=== PATIENT | female | born 1940 | race Asian ===

== ENCOUNTER 2021-01-10 13:53 | Inpatient (IN) | payer OTHER, SELFPAY ==
[~2021-01-10] VITALS: Ht 160 cm; Wt 68.5 kg
[~2021-01-10 13:53] MED LIST: OMEP20TA20 PO; PREVASTATIN SODIUM PO; VERA100C4 PO; WARF-66 PO
[2021-01-10 14:08] VITALS: BP_SYST 139
--- NOTE | 2021-01-10 14:08 | NUR ---
Placed in room 2. Placed on cardiac catheterization technologist, blood pressure machine and pulse oximeter. To gown for exam. Side rails up.
--- NOTE | 2021-01-10 14:09 | NUR ---
Patient is awake, alert, and oriented x4. Patient was sent in by her PCP due to HGBH of 5.7. Patient was going to have a colonoscopy. Dr. Spear is to see her here as she was unable to have one done at [facility] yesterday due to anemia. Patient has no complaints at this time.
--- NOTE | 2021-01-10 14:20 | NUR ---
ER Dr. Sandy at bedside examining patient.
[2021-01-10 14:44] LABS: BASOPHILS % (AUTO) 0.5 % (0.0-2.0); EOSINOPHILS # (AUTO) 0.1 K/uL (0.0-0.4); EOSINOPHILS % (AUTO) 1.9 % (0.0-4.0); LYMPHOCYTES # (AUTO) 1.9 K/uL (1.0-5.5); LYMPHOCYTES % (AUTO) 26.7 % (20.5-51.5); MEAN CORPUSCULAR HEMOGLOBIN 27 pg (27-31); MEAN CORPUSCULAR HGB CONC 31 % (32-36); MEAN CORPUSCULAR VOLUME 89 fL (79.0-98.0); MONOCYTES # (AUTO) 0.5 K/uL (0.0-1.0); MONOCYTES % (AUTO) 6.5 % (1.7-9.3); NEUTROPHILS # (AUTO) 4.6 K/uL (1.8-7.7); NEUTROPHILS % (AUTO) 64.4 % (40.0-70.0); PLATELET COUNT (AUTO) 286 K/uL (130-430); RED BLOOD CELL COUNT(AUTO) 2.27 MIL/uL (4.2-6.2); RED CELL DISTRIBUTION WIDTH 24.5 % (9.0-15.0); WHITE BLOOD COUNT (AUTO) 7.1 K/uL (4.8-10.8)
[2021-01-10 14:45] LABS: ANION GAP 9 (5-15); CALCIUM 9.3 mg/dL (8.4-11.0); CHLORIDE 111 mmol/L (98-107); CREATININE 1.85 mg/dL (0.55-1.30); GLUCOSE 102 mg/dL (70-99); POTASSIUM 4.5 mmol/L (3.5-5.1); SODIUM SERUM 142 mmol/L (136-145); UREA NITROGEN, BLOOD 38 mg/dL (8-21)
[2021-01-10 14:49] LABS: INR 1.8 (0.8-1.2); PROTHROMBIN TIME 17.7 SECS (9.5-12.5)
[2021-01-10 14:51] LABS: ALANINE AMINOTRANSFERASE 19 U/L (12-78); ALBUMIN 3.5 g/dL (3.4-4.8); ASPARTATE AMINOTRANSFERASE 17 U/L (10-37); HEMATOCRIT 20.3 % (36-48); HEMOGLOBIN 6.2 g/dL (12.0-16.0); TOTAL BILIRUBIN 0.3 mg/dL (0.0-1.0)
[2021-01-10] MEDS ORDERED: VERA180T11 PO (14:51)
[2021-01-10] MEDS ORDERED: PRAV40TA PO (14:51)
[2021-01-10] MEDS ORDERED: HYG25 PO (14:51)
[2021-01-10] MEDS ORDERED: ANAS1TAB51 PO (14:51)
--- NOTE | 2021-01-10 14:52 | NUR ---
Medication reconciliation completed with information provided by patient. Any prior medication reconciliation on file was reviewed and corrected.
--- NOTE | 2021-01-10 14:59 | NUR ---
Report given to SHERIN Chaudhari for continuation of care.
--- NOTE | 2021-01-10 15:46 | NUR ---
ORDERS RECEIVED FROM MD EVANS TO ADMIT TO MS. CALLED CHARGE NURSE TO REQUEST BED. BED PROVIDED 101A.
--- NOTE | 2021-01-10 15:55 | NUR ---
Patient will be admitted to care of NATHAN. Admitted to [facility] unit. Will go to room 101A. Belongings list completed. Complete and up to date summary report printed. SBAR report to be given at bedside with opportunity for questions.
--- NOTE | 2021-01-10 16:15 | NUR ---
ADMISSION NOTE Received patient from ER via wheelchair, received report from LINE INSTALLER REPAIRER. Patient admitted with diagnosis of GI bleed. Patient oriented to hospital routine, call light, toileting and safety-patient verbalized understanding. Addendum: 01/10/21 at 1654 by Ashly Spear RN Received report from Fara DUFF
--- NOTE | 2021-01-10 17:25 | NUR ---
RN note Spoke with Dr. Dial regarding medication order of Warfarin 2.5mg, MD ordered to hold the medication because it is contraindicated to patients diagnosis, GI bleed.
[2021-01-10] MEDS ORDERED: COMMUNICATION ORDER XX ONE (17:30)
[2021-01-10 17:51] LABS: TOTAL IRON BIND. CAPACITY 493 ug/dL (250-450)
[2021-01-10] MEDS ORDERED: WARFARIN SODIUM 2.5 MG TABLET PO SCH (18:00)
--- NOTE | 2021-01-10 19:00 | NUR ---
Closing note Patient is resting in bed no signs or symptoms of distress, patient is not actively bleeding. Waiting for 1 unit of blood from [facility]. All needs were met. Bed is in lowest position, call light within reach, fall and aspiration precautions are in place. Will endorse report for overnight cashier.
--- NOTE | 2021-01-10 19:35 | NUR ---
Opening Note Patient is resting in bed with no signs or symptoms of distress, patient is not actively bleeding at this time. Waiting for 1 unit of blood from [facility]. Patient denies pain or discomfort. Patient encouraged to use call light for assistance. Bed is in lowest position, call light within reach, fall and aspiration precautions are in place. Will continue to monitor.
[2021-01-10 20:00] VITALS: BP_SYST 122
[2021-01-10 22:09] LABS: HEMATOCRIT 17.8 % (36-48); HEMOGLOBIN 5.3 g/dL (12.0-16.0)
--- NOTE | 2021-01-10 22:40 | NUR ---
BT INITIATION: Consent signed per patient agreeing to administration of blood. Blood has been type and crossmatched. Blood sent from blood bank. Information on unit of blood checked against patient wristband at bedside by two nurses. All information matches. Patient or responsible democrat informed of potential complications associated with blood transfusion. Informed of possible transfusion reaction symptoms. Aware of need to notify nurse at once of itching, shortness of breath, flushing, feeling of impending doom, or other symptoms not previously present. Vital signs taken within 5 minutes prior to initiation of transfusion. RN will remain with patient for first 15 minutes of transfusion at which time vital signs will be re-assessed.
[2021-01-11] VITALS: BP_SYST 114
--- NOTE | 2021-01-11 01:16 | NUR ---
Blood Transfusion complete no s/s of adverse reaction noted.
--- NOTE | 2021-01-11 03:00 | NUR ---
BT INITIATION: Consent signed per patient agreeing to administration of blood. Blood has been type and crossmatched. Blood sent from blood bank. Information on unit of blood checked against patient wristband at bedside by two nurses. All information matches. Patient or responsible green party informed of potential complications associated with blood transfusion. Informed of possible transfusion reaction symptoms. Aware of need to notify nurse at once of itching, shortness of breath, flushing, feeling of impending doom, or other symptoms not previously present. Vital signs taken within 5 minutes prior to initiation of transfusion. RN will remain with patient for first 15 minutes of transfusion at which time vital signs will be re-assessed.
--- NOTE | 2021-01-11 04:48 | NUR ---
CONSULT: CONSULT CALLED DR. EVER TAM EDGE PLUGGER THIS MORNING I SPOKE WITH TILA HERRERA REASON FOR CONSULT: GI BLEED REQUESTING CONSULT: DR. EVANS TOUR MANAGER PHONE NUMBER: [phone]
--- NOTE | 2021-01-11 05:00 | NUR ---
Blood Transfusion complete no s/s of adverse reaction noted.
--- NOTE | 2021-01-11 06:08 | NUR ---
Closing note Patient is resting in bed no signs or symptoms of distress, patient is not actively bleeding. All needs were met throughout shift. Bed is in lowest position, call light within reach, fall and aspiration precautions are in place. Will endorse report for buffer nickel.
[2021-01-11 07:15] LABS: HEMATOCRIT 24.4 % (36-48); HEMOGLOBIN 7.7 g/dL (12.0-16.0)
[2021-01-11 08:06] LABS: INR 1.9 (0.8-1.2); PROTHROMBIN TIME 18.8 SECS (9.5-12.5)
[2021-01-11 09:47] VITALS: BP_SYST 127
[2021-01-11] MEDS: ATORVASTATIN 10 MG TABLET PO SCH (09:53)
[2021-01-11] MEDS: VERAPAMIL HCL 180 MG TABLET.SA PO SCH (09:53)
--- NOTE | 2021-01-11 10:00 | NUR ---
patient resting in bed, aox4, calm oriented. patient vs are stable, patient has no c/o pain or discomfort. morning meds were given. all needs met for now, will continue monitoring.
--- NOTE | 2021-01-11 10:30 | NUR ---
RECEIVED PATIENT AAO. ON ROOM AIR BREATHING EVEN AND UNLABORED NO SIGN OF DISTRESS. SALINE LOCK LEFT A/C PATENT. SAFETY PRECAUTIONS IN PLACE. WILL CONTINUE TO MONITOR.
[2021-01-11 11:23] VITALS: BP_SYST 145
[2021-01-11 12:54] LABS: BASOPHILS % (AUTO) 0.6 % (0.0-2.0); EOSINOPHILS # (AUTO) 0.1 K/uL (0.0-0.4); EOSINOPHILS % (AUTO) 2.7 % (0.0-4.0); HEMATOCRIT 24.5 % (36-48); HEMOGLOBIN 7.6 g/dL (12.0-16.0); LYMPHOCYTES # (AUTO) 1.3 K/uL (1.0-5.5); LYMPHOCYTES % (AUTO) 27.5 % (20.5-51.5); MEAN CORPUSCULAR HEMOGLOBIN 28 pg (27-31); MEAN CORPUSCULAR HGB CONC 31 % (32-36); MEAN CORPUSCULAR VOLUME 89 fL (79.0-98.0); MONOCYTES # (AUTO) 0.3 K/uL (0.0-1.0); MONOCYTES % (AUTO) 6.2 % (1.7-9.3); PLATELET COUNT (AUTO) 210 K/uL (130-430); RED BLOOD CELL COUNT(AUTO) 2.75 MIL/uL (4.2-6.2); RED CELL DISTRIBUTION WIDTH 20.4 % (9.0-15.0); WHITE BLOOD COUNT (AUTO) 4.8 K/uL (4.8-10.8)
[2021-01-11 15:48] VITALS: BP_SYST 121
--- NOTE | 2021-01-11 17:45 | NUR ---
STARTED BLOOD TRANSFUSION
--- NOTE | 2021-01-11 18:49 | NUR ---
PATIENT RESTING IN BED ON RROM AIR BREATHING EVEN AND UNLABORED NO SIGN OF DISTRESS BLOOD TRANSFUSING TO LEFT A/C AT 150ML/HR. SAFETY PRECAUTIONS IN PLACE WILL ENDORSE TO NEXT SHIFT.
--- NOTE | 2021-01-11 19:15 | NUR ---
OPENING NOTE PATIENT RESTING IN BED ON ROOM AIR ,BREATHING EVEN AND UNLABORED NO SIGN OF DISTRESS, BLOOD TRANSFUSING TO LEFT A/C AT 150ML/HR. SAFETY PRECAUTIONS IN PLACE. WILL CONTINUE TO MONITOR.
[2021-01-11 20:00] VITALS: BP_SYST 121
--- NOTE | 2021-01-11 21:00 | NUR ---
Blood Transfusion Complete no s/s of adverse reaction.
[2021-01-12 00:05] VITALS: BP_SYST 135
--- NOTE | 2021-01-12 06:28 | NUR ---
Closing note Patient is resting in bed no signs or symptoms of distress, patient is not actively bleeding. All needs were met throughout shift. Bed is in lowest position, call light within reach, fall and aspiration precautions are in place. Will endorse report for shift nurse manager.
--- NOTE | 2021-01-12 07:30 | NUR ---
OPENING NOTES PT AWAKE, ALERT, AND ORIENTED. NONLABORED BREATHING NOTED ON ROOM AIR, TOLERATING WELL. IV LINE INTACT AND PATENT, NO SIGNS OF INFILTRATION NOTED. NO ACUTE DISTRESS NOTED. ALL NEEDS MET. CALL LIGHT IN REACH. FALL AND ASPIRATION PRECAUTIONS IN PLACE.
[2021-01-12 08:00] VITALS: BP_SYST 129
[2021-01-12] MEDS: VERAPAMIL HCL 180 MG TABLET.SA PO SCH (08:51)
--- NOTE | 2021-01-12 08:54 | NUR ---
SEEN BY DR. CURTIS AT BEDSIDE.
[2021-01-12] MEDS: ATORVASTATIN 10 MG TABLET PO SCH (08:56)
--- NOTE | 2021-01-12 08:57 | NUR ---
ROUTINE MEDS ADMINISTERED ORDERED PER MD, EDUCATION GIVEN, TOLERATED WELL.
[2021-01-12 09:25] LABS: BASOPHILS % (AUTO) 0.4 % (0.0-2.0); EOSINOPHILS # (AUTO) 0.2 K/uL (0.0-0.4); EOSINOPHILS % (AUTO) 3.1 % (0.0-4.0); HEMATOCRIT 27.8 % (36-48); HEMOGLOBIN 8.8 g/dL (12.0-16.0); LYMPHOCYTES # (AUTO) 1.3 K/uL (1.0-5.5); LYMPHOCYTES % (AUTO) 22.2 % (20.5-51.5); MEAN CORPUSCULAR HEMOGLOBIN 28 pg (27-31); MEAN CORPUSCULAR HGB CONC 32 % (32-36); MEAN CORPUSCULAR VOLUME 89 fL (79.0-98.0); MONOCYTES # (AUTO) 0.4 K/uL (0.0-1.0); MONOCYTES % (AUTO) 7.8 % (1.7-9.3); NEUTROPHILS # (AUTO) 3.8 K/uL (1.8-7.7); NEUTROPHILS % (AUTO) 66.5 % (40.0-70.0); PLATELET COUNT (AUTO) 198 K/uL (130-430); RED BLOOD CELL COUNT(AUTO) 3.11 MIL/uL (4.2-6.2); WHITE BLOOD COUNT (AUTO) 5.7 K/uL (4.8-10.8)
[2021-01-12 10:04] LABS: ANION GAP 9 (5-15); CALCIUM 9.1 mg/dL (8.4-11.0); CHLORIDE 111 mmol/L (98-107); CREATININE 1.43 mg/dL (0.55-1.30); GLUCOSE 90 mg/dL (70-99); POTASSIUM 4.5 mmol/L (3.5-5.1); SODIUM SERUM 142 mmol/L (136-145); UREA NITROGEN, BLOOD 26 mg/dL (8-21)
--- NOTE | 2021-01-12 10:39 | NUR ---
SPOKE TO DR. EVANS AT NURSE'S STATION REGARDING BMP, OK TO GO HOME.
[2021-01-12 12:21] VITALS: BP_SYST 138
[2021-01-12 13:12] VITALS: BP_SYST 139
--- NOTE | 2021-01-17 15:54 | NUR ---
Discharge Follow Up Call: LAMP MECHANIC phoned pt @ [phone] who stated she is "doing okay". Per pt, she has seen her PCP on 01/[address] Paz's clinical project assistant from [facility]. Pt does not have questions/concerns about her discharge instructions. No further SS call needed.
== END 2021-01-12 13:48 | disposition home or self-care (01) | DRG 378 ==
LOC: SED 13:53 → SMU 15:39
PROVIDERS: ADMIT Internal Medicine Hospice and Palliative Medicine; ATTEND Internal Medicine Hospice and Palliative Medicine
PROC: 30233N1 Transfusion of Nonautologous Red Blood Cells into Peripheral Vein, Percutaneous Approach (ICD-10-PCS; principal; 2021-01-10)
DX: K92.2 Gastrointestinal hemorrhage, unspecified (principal); N17.9 Acute kidney failure, unspecified; E78.5 Hyperlipidemia, unspecified; I10 Essential (primary) hypertension; D64.9 Anemia, unspecified; I34.9 Nonrheumatic mitral valve disorder, unspecified; Z85.3 Personal history of malignant neoplasm of breast; Z95.2 Presence of prosthetic heart valve; Z20.822 Contact with and (suspected) exposure to COVID-19; Z79.899 Other long term (current) drug therapy
CPT/HCPCS: 36415; 71045; 80048; 80053; 82550; 82607; 83010; 83540; 83550; 83615; 85018; 85025; 85610-TC; 85730-TC; 86870; 86886; 86900; 86901; 86905; 86920; 93005; 99291; J7040; J7050; P9021

== ENCOUNTER 2021-02-16 11:37 | Observation (INO) | payer OTHER, SELFPAY ==
[~2021-02-16] VITALS: Ht 160 cm; Wt 69.6 kg
[2021-02-16 11:37] VITALS: BP_SYST 148
[~2021-02-16 11:37] MED LIST changes: +ANAS1TAB51 PO; -OMEP20TA20 PO; +PRAV40TA PO; -VERA100C4 PO; +VERA180T11 PO
[2021-02-16 12:31] LABS: BASOPHILS % (AUTO) 0.3 % (0.0-2.0); EOSINOPHILS # (AUTO) 0.1 K/uL (0.0-0.4); LYMPHOCYTES # (AUTO) 1.3 K/uL (1.0-5.5); LYMPHOCYTES % (AUTO) 24.4 % (20.5-51.5); MEAN CORPUSCULAR HEMOGLOBIN 30 pg (27-31); MEAN CORPUSCULAR HGB CONC 33 % (32-36); MEAN CORPUSCULAR VOLUME 90 fL (79.0-98.0); MONOCYTES # (AUTO) 0.3 K/uL (0.0-1.0); MONOCYTES % (AUTO) 5.5 % (1.7-9.3); NEUTROPHILS # (AUTO) 3.7 K/uL (1.8-7.7); NEUTROPHILS % (AUTO) 67.8 % (40.0-70.0); PLATELET COUNT (AUTO) 198 K/uL (130-430); RED BLOOD CELL COUNT(AUTO) 2.16 MIL/uL (4.2-6.2); WHITE BLOOD COUNT (AUTO) 5.5 K/uL (4.8-10.8)
[2021-02-16 12:33] LABS: HEMATOCRIT 19.5 % (36-48); HEMOGLOBIN 6.5 g/dL (12.0-16.0)
[2021-02-16 12:40] LABS: PROTHROMBIN TIME 20.1 SECS (9.5-12.5)
[2021-02-16 12:51] LABS: ANION GAP 8 (5-15); CALCIUM 9.3 mg/dL (8.4-11.0); CHLORIDE 113 mmol/L (98-107); CREATININE 1.95 mg/dL (0.55-1.30); GLUCOSE 112 mg/dL (70-99); POTASSIUM 5.2 mmol/L (3.5-5.1); SODIUM SERUM 144 mmol/L (136-145); UREA NITROGEN, BLOOD 47 mg/dL (8-21)
[2021-02-16 12:59] LABS: ALANINE AMINOTRANSFERASE 22 U/L (12-78); ALBUMIN 3.2 g/dL (3.4-4.8); ASPARTATE AMINOTRANSFERASE 19 U/L (10-37); LIPASE 289 U/L (73-393); TOTAL BILIRUBIN 0.3 mg/dL (0.0-1.0)
[2021-02-16 13:02] LABS: AMYLASE 249 U/L (0-100)
[2021-02-16] MEDS ORDERED: LOSA100T3 PO (13:32)
[2021-02-16 14:36] LABS: BILIRUBIN,URINE NEGATIVE (NEGATIVE); BLOOD, URINE NEGATIVE (NEGATIVE); CLARITY/URINE CLEAR (CLEAR); COLOR,URINE YELLOW (YELLOW); GLUCOSE,URINE NEGATIVE (NEGATIVE); KETONES,URINE NEGATIVE (NEGATIVE); LEUKOCYTE ESTERASE ,URINE 3+ (NEGATIVE); NITRITE, URINE NEGATIVE (NEGATIVE); PH,URINE 5.5 (5.0-8.0); PROTEIN URINE NEGATIVE (NEGATIVE); UROBILINOGEN,URINE 0.2 (0.2-1.0)
[2021-02-16 14:41] LABS: BACTERIA,URINE FEW /HPF (None Seen); MUCUS,URINE 1+ /LPF (None Seen); RBC,URINE 0-3 /HPF (0-3)
[2021-02-16 15:36] VITALS: BP_SYST 132
[2021-02-16] MEDS ORDERED: MORPHINE 2 MG/ML INJ. SYRINGE IVP PRN (16:15)
[2021-02-16] MEDS ORDERED: MORPHINE 4 MG INJ. 4 MG/ML VIAL IVP PRN (16:15)
[2021-02-16] MEDS ORDERED: ACETAMINOPHEN 325 MG TABLET PO PRN (16:15)
[2021-02-16] MEDS ORDERED: ONDANSETRON HCL 4 MG/2 ML VIAL IVP PRN (16:15)
[2021-02-16] MEDS ORDERED: METOCLOPRAMIDE HCL 10 MG/2 ML VIAL IVP PRN (16:15)
[2021-02-16] MEDS ORDERED: WARF2.5T83 PO (16:27)
[2021-02-16] MEDS: NACL 0.9% 1,000 ML IV SCH (16:33)
[2021-02-16 17:20] VITALS: BP_SYST 143
[2021-02-16 19:53] VITALS: BP_SYST 129
[2021-02-17 00:02] VITALS: BP_SYST 126
[2021-02-17 05:26] LABS: BASOPHILS % (AUTO) 0.3 % (0.0-2.0); EOSINOPHILS # (AUTO) 0.1 K/uL (0.0-0.4); EOSINOPHILS % (AUTO) 2.5 % (0.0-4.0); HEMATOCRIT 26.8 % (36-48); HEMOGLOBIN 8.5 g/dL (12.0-16.0); LYMPHOCYTES # (AUTO) 1.3 K/uL (1.0-5.5); LYMPHOCYTES % (AUTO) 24.1 % (20.5-51.5); MEAN CORPUSCULAR HEMOGLOBIN 28 pg (27-31); MEAN CORPUSCULAR HGB CONC 32 % (32-36); MEAN CORPUSCULAR VOLUME 87 fL (79.0-98.0); MONOCYTES # (AUTO) 0.4 K/uL (0.0-1.0); MONOCYTES % (AUTO) 6.9 % (1.7-9.3); NEUTROPHILS # (AUTO) 3.7 K/uL (1.8-7.7); NEUTROPHILS % (AUTO) 66.2 % (40.0-70.0); PLATELET COUNT (AUTO) 162 K/uL (130-430); RED BLOOD CELL COUNT(AUTO) 3.06 MIL/uL (4.2-6.2); RED CELL DISTRIBUTION WIDTH 18.8 % (9.0-15.0); WHITE BLOOD COUNT (AUTO) 5.6 K/uL (4.8-10.8)
[2021-02-17 05:39] LABS: INR 2.2 (0.8-1.2)
[2021-02-17 08:02] VITALS: BP_SYST 134
[2021-02-17] MEDS: NACL 0.9% 1,000 ML IV SCH (08:32)
[2021-02-17] MEDS ORDERED: VERAPAMIL HCL 180 MG TABLET.SA PO SCH (09:00)
[2021-02-17] MEDS ORDERED: PANTOPRAZOLE SODIUM 40 MG TAB PO SCH (09:00)
[2021-02-17] MEDS ORDERED: PRAVASTATIN 40 MG PO SCH (09:00)
[2021-02-17] MEDS ORDERED: ATORVASTATIN 10 MG TABLET PO SCH (09:00)
[2021-02-17] MEDS ORDERED: PRO40 PO (09:44)
[2021-02-17 10:21] VITALS: BP_SYST 134
[2021-02-17] MEDS ORDERED: WARFARIN SODIUM 2.5 MG TABLET PO SCH (18:00)
== END 2021-02-17 11:00 | disposition home or self-care (01) ==
LOC: SED 11:37 → SMU 14:28 → INTOOBSV 14:28 → SMU 14:53
PROVIDERS: ADMIT Internal Medicine Hospice and Palliative Medicine; ATTEND Internal Medicine Hospice and Palliative Medicine
DX: D50.0 Iron deficiency anemia secondary to blood loss (chronic) (principal); Z20.822 Contact with and (suspected) exposure to COVID-19; K92.1 Melena; D12.6 Benign neoplasm of colon, unspecified; K64.8 Other hemorrhoids; I12.9 Hypertensive chronic kidney disease with stage 1 through stage 4 chronic kidney disease, or unspecified chronic kidney disease; N18.9 Chronic kidney disease, unspecified; I48.91 Unspecified atrial fibrillation; Z95.2 Presence of prosthetic heart valve; Z79.899 Other long term (current) drug therapy
CPT/HCPCS: 36415 ×2; 36430 ×2; 71045; 80053; 81000; 82150; 83690; 85025 ×2; 85610 ×2; 85730; 86870; 86886; 86900; 86901; 86920; 87086; 87426; 93005; 96360; 96361 ×2; 99285; G0378 ×2; J7030 ×2; J7040; P9021 ×2

== ENCOUNTER 2021-08-17 08:28 | Emergency (ER) | payer OTHER, SELFPAY ==
[~2021-08-17] VITALS: Ht 160 cm; Wt 68.5 kg
[2021-08-17 08:28] VITALS: BP_SYST 129
[~2021-08-17 08:28] MED LIST changes: +LOSA100T3 PO; +PRO40 PO; -VERA180T11 PO; +VERA180T24 PO; -WARF-66 PO; +WARF2.5T83 PO
--- NOTE | 2021-08-17 08:28 | NUR ---
BROUGHT BACK TO BED #8 AND REPORT GIVEN TO KATHY
--- NOTE | 2021-08-17 08:32 | NUR ---
PT BIB FROM HOME STATING SHE WAS REFERRED BY HER MD AFTER LOW H/H THIS PAST SATURDAY. STATES SHE HAS BEEN FEELING FATIGUED. PT REPORTS TAKING COUMADIN FOR MITRAL VALVE ISSUE. ALSO STATES SHE HAS A HX OF GI BLEEDING. PT IS AAOX4, V/S STABLE, AMBULATORY.
--- NOTE | 2021-08-17 08:49 | NUR ---
# 20 gauge angiocath placed to RAC. Use of asceptic technique. Opsite placed over site. Blood return noted. Blood for lab drawn from site. Flushed with 10 cc of normal saline. No evidence of infiltration noted. Patient tolerated well.
--- NOTE | 2021-08-17 08:55 | NUR ---
ER DR. MONTEMAYOR AT THE BEDSIDE EXAMINING PT
[2021-08-17 09:16] LABS: BASOPHILS % (AUTO) 0.6 % (0.0-2.0); EOSINOPHILS # (AUTO) 0.3 K/uL (0.0-0.4); EOSINOPHILS % (AUTO) 6.2 % (0.0-4.0); HEMATOCRIT 22.4 % (36-48); HEMOGLOBIN 7.3 g/dL (12.0-16.0); LYMPHOCYTES # (AUTO) 0.9 K/uL (1.0-5.5); LYMPHOCYTES % (AUTO) 18.1 % (20.5-51.5); MEAN CORPUSCULAR HEMOGLOBIN 30 pg (27-31); MEAN CORPUSCULAR HGB CONC 32 % (32-36); MEAN CORPUSCULAR VOLUME 93 fL (79.0-98.0); MONOCYTES # (AUTO) 0.3 K/uL (0.0-1.0); MONOCYTES % (AUTO) 6.4 % (1.7-9.3); NEUTROPHILS # (AUTO) 3.6 K/uL (1.8-7.7); NEUTROPHILS % (AUTO) 68.7 % (40.0-70.0); PLATELET COUNT (AUTO) 278 K/uL (130-430); RED BLOOD CELL COUNT(AUTO) 2.41 MIL/uL (4.2-6.2); RED CELL DISTRIBUTION WIDTH 18.4 % (9.0-15.0); WHITE BLOOD COUNT (AUTO) 5.2 K/uL (4.8-10.8)
[2021-08-17 09:20] LABS: ANION GAP 8 (5-15); CALCIUM 8.7 mg/dL (8.4-11.0); CHLORIDE 110 mmol/L (98-107); CREATININE 1.61 mg/dL (0.55-1.30); GLUCOSE 112 mg/dL (70-99); POTASSIUM 3.7 mmol/L (3.5-5.1); SODIUM SERUM 143 mmol/L (136-145); UREA NITROGEN, BLOOD 25 mg/dL (8-21)
[2021-08-17 09:23] LABS: INR 1.8 (0.8-1.2); PROTHROMBIN TIME 18.9 SECS (9.5-12.5)
[2021-08-17 09:26] LABS: ALANINE AMINOTRANSFERASE 22 U/L (12-78); ALBUMIN 3.2 g/dL (3.4-4.8); ASPARTATE AMINOTRANSFERASE 22 U/L (10-37); TOTAL BILIRUBIN 0.1 mg/dL (0.0-1.0)
--- NOTE | 2021-08-17 09:30 | NUR ---
PT RESTING IN [facility], AAOX4, NO DISTRESS NOTED
[2021-08-17 10:14] VITALS: BP_SYST 129
== END 2021-08-17 10:16 | disposition home or self-care (01) ==
LOC: SED 08:28
DX: D53.9 Nutritional anemia, unspecified (principal); N18.9 Chronic kidney disease, unspecified; I48.91 Unspecified atrial fibrillation; Z79.899 Other long term (current) drug therapy
CPT/HCPCS: 36415; 80053; 85025; 85610-TC; 86870; 86886; 86900; 86901; 99283

== ENCOUNTER 2023-12-23 11:03 | Inpatient (IN) | payer OTHER ==
[~2023-12-23] VITALS: Ht 160 cm; Wt 57.7 kg
[~2023-12-23 11:03] MED LIST changes: +LOSA-415 PO; -LOSA100T3 PO; -VERA180T24 PO; +VERA180T59 PO
[2023-12-23 11:09] VITALS: BP_SYST 134; PULSE 59; RESP 17; TEMP 96.7; O2SAT 90
[2023-12-23 11:36] LABS: ABG O2 SAT% ESTIMATE 90.3 % (94.0-100.0); BLOOD GAS PCO2 32.9 mmHg (35.0-45.0); BLOOD GAS PH 7.349 (7.350-7.450); BLOOD GAS PO2 60.4 mmHg (75.0-100.0)
[2023-12-23 11:39] LABS: BLOOD GAS HCO3 17.7 mmol/L (21.0-27.0)
[2023-12-23 11:40] LABS: ALLEN'S TEST POSITIVE (P); BLOOD GAS BASE EXCESS -6.8 mmol/L (-3.0-3.0)
[2023-12-23 11:41] LABS: BASOPHILS # (AUTO) 0.1 K/uL (0.0-0.2); BASOPHILS % (AUTO) 0.6 % (0.0-2.0); EOSINOPHILS # (AUTO) 0.3 K/uL (0.0-0.4); EOSINOPHILS % (AUTO) 3.4 % (0.0-4.0); HEMATOCRIT 34.2 % (36-48); HEMOGLOBIN 11.2 g/dL (12.0-16.0); LYMPHOCYTES # (AUTO) 0.9 K/uL (1.0-5.5); LYMPHOCYTES % (AUTO) 9.9 % (20.5-51.5); MEAN CORPUSCULAR HEMOGLOBIN 31 pg (27-31); MEAN CORPUSCULAR HGB CONC 33 % (32-36); MEAN CORPUSCULAR VOLUME 95 fL (79.0-98.0); MONOCYTES # (AUTO) 0.5 K/uL (0.0-1.0); MONOCYTES % (AUTO) 6.3 % (1.7-9.3); NEUTROPHILS # (AUTO) 6.9 K/uL (1.8-7.7); NEUTROPHILS % (AUTO) 79.8 % (40.0-70.0); PLATELET COUNT (AUTO) 294 K/uL (130-430); RED CELL DISTRIBUTION WIDTH 14.6 % (9.0-15.0); WHITE BLOOD COUNT (AUTO) 8.6 K/uL (4.8-10.8)
[2023-12-23 11:51] LABS: ANION GAP 12 (5-15); CALCIUM 9.4 mg/dL (8.4-11.0); CARBON DIOXIDE 23 mmol/L (23-29); CHLORIDE 111 mmol/L (98-107); CREATININE 2.22 mg/dL (0.55-1.30); GLUCOSE 113 mg/dL (74-106); POTASSIUM 4.5 mmol/L (3.5-5.1); SODIUM SERUM 146 mmol/L (136-145); UREA NITROGEN, BLOOD 73 mg/dL (8-21)
[2023-12-23 11:59] LABS: ALANINE AMINOTRANSFERASE 23 U/L (12-78); ALBUMIN 2.6 g/dL (3.4-4.8); ASPARTATE AMINOTRANSFERASE 18 U/L (10-37); BILIRUBIN,DIRECT 0.1 mg/dL (0.0-0.3); TOTAL BILIRUBIN 0.4 mg/dL (0.0-1.0); TOTAL PROTEIN, SERUM 7.6 g/dL (6.4-8.3)
[2023-12-23] MEDS ORDERED: METO-540 (12:13)
[2023-12-23 12:46] LABS: COVID19 ANTIGEN SOFIA FIA NEGATIVE (NEGATIVE)
[2023-12-23 12:48] LABS: INFLUENZA TYPE A Negative (NEGATIVE); INFLUENZA TYPE B NEGATIVE (NEGATIVE)
[2023-12-23] MEDS ORDERED: MORPHINE 2 MG/ML INJ. SYRINGE IVP PRN (14:00)
[2023-12-23] MEDS ORDERED: ONDANSETRON HCL 4 MG/2 ML VIAL IVP PRN (14:00)
[2023-12-23] MEDS ORDERED: ACETAMINOPHEN 325 MG TABLET PO PRN ×2 (14:00→14:15)
[2023-12-23] MEDS ORDERED: HYDROcodone/ACETAMIN 10-325 MG TAB PO PRN (14:00)
[2023-12-23] MEDS ORDERED: HYDROcodone/ACETAMIN 5-325 MG TAB (NORCO/ VICODIN) PO PRN (14:00)
[2023-12-23] MEDS: FUROSEMIDE 20 MG/2 ML VIAL IVP ONE (14:21)
[2023-12-23] MEDS: METOPROLOL TARTRATE 25 MG TABLET PO ONE (14:21)
[2023-12-23 14:27] LABS: INR 3.3 (0.8-1.2); PROTHROMBIN TIME 32.5 SECS (9.5-12.5)
[2023-12-23 14:35] VITALS: O2SAT 96
[2023-12-23] MEDS: IPRATROPIUM BROM 0.5 MG/2.5 ML VIAL.NEB (ATROVENT) INH SCH (14:37)
[2023-12-23 14:49] VITALS: BP_SYST 137; PULSE 65; O2SAT 96
[2023-12-23 19:00] VITALS: O2SAT 97
[2023-12-23] MEDS: METOPROLOL TARTRATE 25 MG TABLET PO SCH (21:01)
[2023-12-23] MEDS: FUROSEMIDE 20 MG/2 ML VIAL IVP SCH (21:01)
[2023-12-23 22:50] VITALS: O2SAT 97
[2023-12-24] VITALS (9 sets, daily range): BP systolic 128–141; PULSE 70–88; RESP 18–22; TEMP 97.1–99.3; O2SAT 92–97
[2023-12-24 06:11] LABS: BASOPHILS % (AUTO) 0.6 % (0.0-2.0); EOSINOPHILS # (AUTO) 0.3 K/uL (0.0-0.4); EOSINOPHILS % (AUTO) 4.2 % (0.0-4.0); HEMATOCRIT 33.2 % (36-48); HEMOGLOBIN 10.8 g/dL (12.0-16.0); LYMPHOCYTES # (AUTO) 0.7 K/uL (1.0-5.5); LYMPHOCYTES % (AUTO) 8.8 % (20.5-51.5); MEAN CORPUSCULAR HEMOGLOBIN 31 pg (27-31); MEAN CORPUSCULAR HGB CONC 33 % (32-36); MEAN CORPUSCULAR VOLUME 95 fL (79.0-98.0); MONOCYTES # (AUTO) 0.5 K/uL (0.0-1.0); MONOCYTES % (AUTO) 7.1 % (1.7-9.3); NEUTROPHILS % (AUTO) 79.3 % (40.0-70.0); PLATELET COUNT (AUTO) 259 K/uL (130-430); RED BLOOD CELL COUNT(AUTO) 3.48 MIL/uL (4.2-6.2); RED CELL DISTRIBUTION WIDTH 14.7 % (9.0-15.0); WHITE BLOOD COUNT (AUTO) 7.5 K/uL (4.8-10.8)
[2023-12-24 06:37] LABS: INR 3.1 (0.8-1.2); PROTHROMBIN TIME 30.1 SECS (9.5-12.5)
[2023-12-24 07:05] LABS: ALANINE AMINOTRANSFERASE 15 U/L (12-78); ALBUMIN 2.5 g/dL (3.4-4.8); ANION GAP 10 (5-15); CALCIUM 9.4 mg/dL (8.4-11.0); CARBON DIOXIDE 25 mmol/L (23-29); CHLORIDE 113 mmol/L (98-107); CREATININE 2.17 mg/dL (0.55-1.30); GLUCOSE 88 mg/dL (74-106); PHOSPHORUS 3.8 mg/dL (2.7-4.5); POTASSIUM 4.8 mmol/L (3.5-5.1); SODIUM SERUM 148 mmol/L (136-145); TOTAL BILIRUBIN 0.4 mg/dL (0.0-1.0); TOTAL PROTEIN, SERUM 7.2 g/dL (6.4-8.3); UREA NITROGEN, BLOOD 68 mg/dL (8-21)
[2023-12-24 07:34] LABS: ASPARTATE AMINOTRANSFERASE 24 U/L (10-37)
[2023-12-24] MEDS ORDERED: METO50TA7 PO (12:08)
[2023-12-24] MEDS ORDERED: PRO40 PO (12:08)
[2023-12-24] MEDS ORDERED: TORS10TA15 PO (12:11)
[2023-12-24] MEDS ORDERED: FEBU40TA PO (12:15)
[2023-12-24] MEDS: ANASTROZOLE 1 MG TABLET (ARIMIDEX) PO ONE (12:27)
[2023-12-24] MEDS: PANTOPRAZOLE SODIUM 40 MG TAB PO ONE (12:27)
[2023-12-24] MEDS: VERAPAMIL HCL 180 MG TABLET.SA PO ONE (12:27)
[2023-12-24] MEDS: ATORVASTATIN 10 MG TABLET PO ONE (12:27)
[2023-12-24] MEDS ORDERED: WARFARIN SODIUM 2.5 MG TABLET PO SCH (18:00)
[2023-12-24] MEDS ORDERED: FUROSEMIDE 40 MG/4 ML VIAL IVP SCH (18:00)
[2023-12-24] MEDS: METOPROLOL TARTRATE 50 MG TABLET PO SCH (20:36)
[2023-12-25] VITALS (11 sets, daily range): BP systolic 125–135; PULSE 62–98; RESP 14–20; TEMP 98.3–99.2; O2SAT 92–100
[2023-12-25 06:03] LABS: BASOPHILS % (AUTO) 0.3 % (0.0-2.0); EOSINOPHILS # (AUTO) 0.3 K/uL (0.0-0.4); EOSINOPHILS % (AUTO) 4.1 % (0.0-4.0); HEMATOCRIT 32.1 % (36-48); HEMOGLOBIN 10.4 g/dL (12.0-16.0); LYMPHOCYTES # (AUTO) 0.8 K/uL (1.0-5.5); LYMPHOCYTES % (AUTO) 11.3 % (20.5-51.5); MEAN CORPUSCULAR HEMOGLOBIN 31 pg (27-31); MEAN CORPUSCULAR HGB CONC 32 % (32-36); MEAN CORPUSCULAR VOLUME 96 fL (79.0-98.0); MONOCYTES # (AUTO) 0.5 K/uL (0.0-1.0); MONOCYTES % (AUTO) 7.4 % (1.7-9.3); NEUTROPHILS # (AUTO) 5.3 K/uL (1.8-7.7); NEUTROPHILS % (AUTO) 76.9 % (40.0-70.0); PLATELET COUNT (AUTO) 237 K/uL (130-430); RED BLOOD CELL COUNT(AUTO) 3.36 MIL/uL (4.2-6.2); RED CELL DISTRIBUTION WIDTH 14.4 % (9.0-15.0); WHITE BLOOD COUNT (AUTO) 6.9 K/uL (4.8-10.8)
[2023-12-25 06:09] LABS: INR 2.8 (0.8-1.2); PROTHROMBIN TIME 27.7 SECS (9.5-12.5)
[2023-12-25 06:14] LABS: ALANINE AMINOTRANSFERASE 12 U/L (12-78); ALBUMIN 2.2 g/dL (3.4-4.8); ANION GAP 9 (5-15); ASPARTATE AMINOTRANSFERASE 13 U/L (10-37); CALCIUM 9.1 mg/dL (8.4-11.0); CARBON DIOXIDE 25 mmol/L (23-29); CHLORIDE 113 mmol/L (98-107); CREATININE 2.13 mg/dL (0.55-1.30); GLUCOSE 92 mg/dL (74-106); POTASSIUM 4.5 mmol/L (3.5-5.1); SODIUM SERUM 147 mmol/L (136-145); TOTAL BILIRUBIN 0.3 mg/dL (0.0-1.0); TOTAL PROTEIN, SERUM 6.5 g/dL (6.4-8.3); UREA NITROGEN, BLOOD 63 mg/dL (8-21)
[2023-12-25] MEDS: ANASTROZOLE 1 MG TABLET (ARIMIDEX) PO SCH (09:00)
[2023-12-25] MEDS ORDERED: VERAPAMIL HCL 180 MG TABLET.SA PO SCH (09:00)
[2023-12-25] MEDS: ATORVASTATIN 10 MG TABLET PO SCH (09:00)
[2023-12-25] MEDS: PANTOPRAZOLE SODIUM 40 MG TAB PO SCH (09:00)
[2023-12-25] MEDS: FUROSEMIDE 40 MG/4 ML VIAL IVP ONE (14:51)
[2023-12-25] MEDS: WARFARIN SODIUM 2 MG TABLET PO SCH (18:36)
[2023-12-25] MEDS: FUROSEMIDE 40 MG/4 ML VIAL IVP SCH (21:20)
[2023-12-26] VITALS (12 sets, daily range): BP systolic 122–132; PULSE 71–86; RESP 16–18; TEMP 97.9–98.5; O2SAT 92–97
[2023-12-26 05:05] LABS: BASOPHILS % (AUTO) 0.4 % (0.0-2.0); EOSINOPHILS # (AUTO) 0.2 K/uL (0.0-0.4); EOSINOPHILS % (AUTO) 2.7 % (0.0-4.0); HEMATOCRIT 33.2 % (36-48); HEMOGLOBIN 10.8 g/dL (12.0-16.0); LYMPHOCYTES # (AUTO) 0.7 K/uL (1.0-5.5); LYMPHOCYTES % (AUTO) 8.6 % (20.5-51.5); MEAN CORPUSCULAR HEMOGLOBIN 31 pg (27-31); MEAN CORPUSCULAR HGB CONC 32 % (32-36); MEAN CORPUSCULAR VOLUME 95 fL (79.0-98.0); MONOCYTES # (AUTO) 0.5 K/uL (0.0-1.0); MONOCYTES % (AUTO) 6.1 % (1.7-9.3); NEUTROPHILS # (AUTO) 6.9 K/uL (1.8-7.7); NEUTROPHILS % (AUTO) 82.2 % (40.0-70.0); PLATELET COUNT (AUTO) 248 K/uL (130-430); RED BLOOD CELL COUNT(AUTO) 3.48 MIL/uL (4.2-6.2); RED CELL DISTRIBUTION WIDTH 14.1 % (9.0-15.0); WHITE BLOOD COUNT (AUTO) 8.4 K/uL (4.8-10.8)
[2023-12-26 05:21] LABS: INR 2.3 (0.8-1.2); PROTHROMBIN TIME 22.7 SECS (9.5-12.5)
[2023-12-26 05:37] LABS: ALBUMIN 2.4 g/dL (3.4-4.8); ANION GAP 8 (5-15); ASPARTATE AMINOTRANSFERASE 12 U/L (10-37); CALCIUM 9.3 mg/dL (8.4-11.0); CARBON DIOXIDE 27 mmol/L (23-29); CHLORIDE 110 mmol/L (98-107); CREATININE 2.33 mg/dL (0.55-1.30); GLUCOSE 97 mg/dL (74-106); POTASSIUM 4.1 mmol/L (3.5-5.1); SODIUM SERUM 145 mmol/L (136-145); TOTAL PROTEIN, SERUM 7.4 g/dL (6.4-8.3); UREA NITROGEN, BLOOD 59 mg/dL (8-21)
[2023-12-26 07:51] LABS: ALANINE AMINOTRANSFERASE 21 U/L (12-78); TOTAL BILIRUBIN 0.5 mg/dL (0.0-1.0)
[2023-12-26] MEDS: ALBUMIN HUMAN 25% 50 ML IV SCH (13:19)
[2023-12-26] MEDS: ALBUMIN HUMAN 25% 50 ML IV ONE (20:51)
[2023-12-27] VITALS (12 sets, daily range): BP systolic 119–133; PULSE 63–92; RESP 16–20; TEMP 97.8–98.2; O2SAT 93–99
[2023-12-27 05:12] LABS: INR 1.9 (0.8-1.2); PROTHROMBIN TIME 18.9 SECS (9.5-12.5)
[2023-12-27 05:14] LABS: BASOPHILS % (AUTO) 0.3 % (0.0-2.0); EOSINOPHILS # (AUTO) 0.2 K/uL (0.0-0.4); EOSINOPHILS % (AUTO) 1.9 % (0.0-4.0); HEMATOCRIT 34.1 % (36-48); HEMOGLOBIN 11.4 g/dL (12.0-16.0); LYMPHOCYTES # (AUTO) 0.7 K/uL (1.0-5.5); MEAN CORPUSCULAR HEMOGLOBIN 32 pg (27-31); MEAN CORPUSCULAR HGB CONC 33 % (32-36); MEAN CORPUSCULAR VOLUME 94 fL (79.0-98.0); MONOCYTES # (AUTO) 0.6 K/uL (0.0-1.0); MONOCYTES % (AUTO) 6.7 % (1.7-9.3); NEUTROPHILS # (AUTO) 7.4 K/uL (1.8-7.7); NEUTROPHILS % (AUTO) 83.1 % (40.0-70.0); PLATELET COUNT (AUTO) 257 K/uL (130-430); RED BLOOD CELL COUNT(AUTO) 3.61 MIL/uL (4.2-6.2); RED CELL DISTRIBUTION WIDTH 14.3 % (9.0-15.0); WHITE BLOOD COUNT (AUTO) 8.8 K/uL (4.8-10.8)
[2023-12-27 05:42] LABS: ALANINE AMINOTRANSFERASE 20 U/L (12-78); ALBUMIN 2.8 g/dL (3.4-4.8); ANION GAP 10 (5-15); ASPARTATE AMINOTRANSFERASE 10 U/L (10-37); CALCIUM 9.4 mg/dL (8.4-11.0); CARBON DIOXIDE 27 mmol/L (23-29); CHLORIDE 105 mmol/L (98-107); CREATININE 2.49 mg/dL (0.55-1.30); GLUCOSE 103 mg/dL (74-106); POTASSIUM 4.3 mmol/L (3.5-5.1); SODIUM SERUM 142 mmol/L (136-145); TOTAL BILIRUBIN 0.5 mg/dL (0.0-1.0); TOTAL PROTEIN, SERUM 7.8 g/dL (6.4-8.3); UREA NITROGEN, BLOOD 63 mg/dL (8-21)
[2023-12-27] MEDS: WARFARIN SODIUM 2.5 MG TABLET PO SCH (18:59)
[2023-12-27] MEDS: ALBUMIN HUMAN 25% 50 ML IV ONE (19:15)
[2023-12-28] VITALS (11 sets, daily range): BP systolic 109–121; PULSE 87–104; RESP 18; TEMP 97–98.6; O2SAT 91–97
[2023-12-28 06:34] LABS: BASOPHILS % (AUTO) 0.3 % (0.0-2.0); EOSINOPHILS # (AUTO) 0.2 K/uL (0.0-0.4); EOSINOPHILS % (AUTO) 3.2 % (0.0-4.0); HEMATOCRIT 33.4 % (36-48); HEMOGLOBIN 10.9 g/dL (12.0-16.0); LYMPHOCYTES # (AUTO) 0.7 K/uL (1.0-5.5); LYMPHOCYTES % (AUTO) 10.8 % (20.5-51.5); MEAN CORPUSCULAR HEMOGLOBIN 31 pg (27-31); MEAN CORPUSCULAR HGB CONC 33 % (32-36); MEAN CORPUSCULAR VOLUME 94 fL (79.0-98.0); MONOCYTES # (AUTO) 0.4 K/uL (0.0-1.0); MONOCYTES % (AUTO) 5.9 % (1.7-9.3); NEUTROPHILS # (AUTO) 5.5 K/uL (1.8-7.7); NEUTROPHILS % (AUTO) 79.8 % (40.0-70.0); PLATELET COUNT (AUTO) 248 K/uL (130-430); RED BLOOD CELL COUNT(AUTO) 3.55 MIL/uL (4.2-6.2); RED CELL DISTRIBUTION WIDTH 14.1 % (9.0-15.0); WHITE BLOOD COUNT (AUTO) 6.8 K/uL (4.8-10.8)
[2023-12-28 06:40] LABS: INR 1.6 (0.8-1.2); PROTHROMBIN TIME 16.3 SECS (9.5-12.5)
[2023-12-28 06:59] LABS: ALANINE AMINOTRANSFERASE 20 U/L (12-78); ALBUMIN 2.8 g/dL (3.4-4.8); ANION GAP 10 (5-15); ASPARTATE AMINOTRANSFERASE 12 U/L (10-37); CALCIUM 9.5 mg/dL (8.4-11.0); CARBON DIOXIDE 26 mmol/L (23-29); CHLORIDE 105 mmol/L (98-107); CREATININE 2.77 mg/dL (0.55-1.30); GLUCOSE 116 mg/dL (74-106); POTASSIUM 3.8 mmol/L (3.5-5.1); SODIUM SERUM 141 mmol/L (136-145); TOTAL BILIRUBIN 0.5 mg/dL (0.0-1.0); TOTAL PROTEIN, SERUM 7.6 g/dL (6.4-8.3); UREA NITROGEN, BLOOD 72 mg/dL (8-21)
[2023-12-28] MEDS: FUROSEMIDE 40 MG TABLET PO SCH (08:33)
[2023-12-28] MEDS: WARFARIN SODIUM 3 MG TABLET PO SCH (17:22)
[2023-12-29 00:30] VITALS: BP_SYST 113; PULSE 86; RESP 18; TEMP 98; O2SAT 96
[2023-12-29 01:38] LABS: BILIRUBIN,URINE NEGATIVE (NEGATIVE); BLOOD, URINE NEGATIVE (NEGATIVE); CLARITY/URINE CLEAR (CLEAR); COLOR,URINE YELLOW (YELLOW); GLUCOSE,URINE NEGATIVE (NEGATIVE); KETONES,URINE NEGATIVE (NEGATIVE); LEUKOCYTE ESTERASE ,URINE TRACE (NEGATIVE); NITRITE, URINE NEGATIVE (NEGATIVE); PH,URINE 5.5 (5.0-8.0); PROTEIN URINE TRACE (NEGATIVE); UROBILINOGEN,URINE 0.2 (0.2-1.0)
[2023-12-29 02:33] LABS: BACTERIA,URINE RARE /HPF (None Seen)
[2023-12-29 03:39] VITALS: O2SAT 94
[2023-12-29 06:19] LABS: INR 1.7 (0.8-1.2); PROTHROMBIN TIME 16.7 SECS (9.5-12.5)
[2023-12-29 07:23] VITALS: O2SAT 93
[2023-12-29 08:39] VITALS: BP_SYST 130; PULSE 73; RESP 28; TEMP 98.2; O2SAT 96
[2023-12-29 11:20] VITALS: O2SAT 95
[2023-12-29 11:27] VITALS: BP_SYST 109; PULSE 61; RESP 16; TEMP 97.3; O2SAT 96
[2023-12-29 12:22] LABS: BASOPHILS # (AUTO) 0.1 K/uL (0.0-0.2); BASOPHILS % (AUTO) 1.9 % (0.0-2.0); EOSINOPHILS # (AUTO) 0.3 K/uL (0.0-0.4); EOSINOPHILS % (AUTO) 4.8 % (0.0-4.0); HEMATOCRIT 34.3 % (36-48); HEMOGLOBIN 11.3 g/dL (12.0-16.0); LYMPHOCYTES # (AUTO) 0.6 K/uL (1.0-5.5); LYMPHOCYTES % (AUTO) 9.4 % (20.5-51.5); MEAN CORPUSCULAR HEMOGLOBIN 31 pg (27-31); MEAN CORPUSCULAR HGB CONC 33 % (32-36); MEAN CORPUSCULAR VOLUME 95 fL (79.0-98.0); MONOCYTES # (AUTO) 0.4 K/uL (0.0-1.0); MONOCYTES % (AUTO) 6.5 % (1.7-9.3); NEUTROPHILS # (AUTO) 5.2 K/uL (1.8-7.7); NEUTROPHILS % (AUTO) 77.4 % (40.0-70.0); PLATELET COUNT (AUTO) 267 K/uL (130-430); RED CELL DISTRIBUTION WIDTH 14.4 % (9.0-15.0); WHITE BLOOD COUNT (AUTO) 6.8 K/uL (4.8-10.8)
[2023-12-29 12:29] LABS: ALANINE AMINOTRANSFERASE 22 U/L (12-78); ALBUMIN 2.8 g/dL (3.4-4.8); ANION GAP 6 (5-15); ASPARTATE AMINOTRANSFERASE 23 U/L (10-37); CALCIUM 9.7 mg/dL (8.4-11.0); CARBON DIOXIDE 26 mmol/L (23-29); CHLORIDE 104 mmol/L (98-107); CREATININE 2.75 mg/dL (0.55-1.30); GLUCOSE 91 mg/dL (74-106); POTASSIUM 3.9 mmol/L (3.5-5.1); SODIUM SERUM 136 mmol/L (136-145); TOTAL BILIRUBIN 0.4 mg/dL (0.0-1.0); TOTAL PROTEIN, SERUM 7.9 g/dL (6.4-8.3); UREA NITROGEN, BLOOD 78 mg/dL (8-21)
[2023-12-29] MEDS ORDERED: FURO-149 PO (14:20)
[2023-12-29] MEDS ORDERED: METO-442 PO (14:20)
[2023-12-29] MEDS ORDERED: POTA8TAB66 PO (15:05)
== END 2023-12-29 15:30 | disposition home health service (06) | DRG 291 ==
LOC: SED 11:03 → STU 14:00 → SMU 12-26 23:26
PROVIDERS: ADMIT Family Medicine; ATTEND Family Medicine
DX: I13.0 Hypertensive heart and chronic kidney disease with heart failure and stage 1 through stage 4 chronic kidney disease, or unspecified chronic kidney disease (principal); I50.33 Acute on chronic diastolic (congestive) heart failure; J96.20 Acute and chronic respiratory failure, unspecified whether with hypoxia or hypercapnia; E87.0 Hyperosmolality and hypernatremia; N17.9 Acute kidney failure, unspecified; Z20.822 Contact with and (suspected) exposure to COVID-19; I05.0 Rheumatic mitral stenosis; D64.9 Anemia, unspecified; I27.20 Pulmonary hypertension, unspecified; I48.91 Unspecified atrial fibrillation; E78.5 Hyperlipidemia, unspecified; N18.9 Chronic kidney disease, unspecified; Z79.899 Other long term (current) drug therapy; Z79.01 Long term (current) use of anticoagulants; Z90.12 Acquired absence of left breast and nipple
CPT/HCPCS: 36415; 36600; 71045; 76770; 80048; 80053; 80076; 81000; 81001; 81015; 82803; 83735; 83880; 84100; 84302; 84484; 85025; 85379; 85610; 93005; 93306; 94640; 94760; 97110-GP; 97112-GP; 97116-GP; 97530-GP; 99285; G0378; J1940; P9046